=== PATIENT | female | born 1990 | race Caucasian/White ===

== ENCOUNTER 2020-10-08 17:55 | Emergency (ER) | payer BC, MEDICAID, OTHER ==
--- NOTE | 2020-10-08 18:34 | EDM.PDOC ---
ED HPI GENERAL MEDICAL PROBLEM - General Chief Complaint: General Stated Complaint: NECK SWELLING/PAIN Time Seen by Provider: 10/08/20 18:18 Source of Information: Reports: Patient History Limitations: Reports: No Limitations - History of Present Illness INITIAL COMMENTS - FREE TEXT/NARRATIVE: Patient reports right side of neck has looked swollen today. Some pain in right neck when turning head. 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 Does not recall any specific injury. Denies sore throat/fever/URI complaints or other signs of acute illness. - Related Data Allergies Allergy/AdvReac Type Severity Reaction Status Date / Time HPV vaccination Allergy Nausea and Uncoded 06/05/13 15:49 Vomiting pollen Allergy Edema Uncoded 06/05/13 15:49 Home Meds: Home Meds Cetirizine HCl [Zyrtec] 10 mg PO DAILY PRN 10/08/20 [History] Levothyroxine Sodium [Levothyroxine] 125 mcg PO DAILY 10/08/20 [History] Past Medical History Endocrine/Metabolic History: Reports: Hyperthyroidism Immunologic History: Reports: Other (See Below) (evironmental allergies) Social & Family History - Living Situation & Occupation Living situation: Reports: , with Family Occupation: Employed ED ROS GENERAL - Review of Systems Review Of Systems: See Below Constitutional: Reports: No Symptoms HEENT: Reports: Rhinitis (usual "allergic" runny nose), Throat Pain (irritated throat in AM that she attributes to smoke/allergies--no acute change), Other (right side neck swelling). Denies: Ear Discharge, Ear Pain, Eye Discharge, Nosebleed, Nose Pain, Sinus Problem, Throat Swelling, Vertigo, Vision Change Respiratory: Reports: No Symptoms Cardiovascular: Reports: No Symptoms Endocrine: Reports: No Symptoms GI/Abdominal: Reports: No Symptoms : Reports: No Symptoms Musculoskeletal: Reports: No Symptoms Skin: Reports: No Symptoms Neurological: Reports: No Symptoms Psychiatric: Reports: No Symptoms Hematologic/Lymphatic: Reports: Other (? swollen gland on right side of neck?) ED EXAM, GENERAL - Physical Exam Exam: See Below Exam Limited By: No Limitations General Appearance: Alert, WD/WN, No Apparent Distress Eye Exam: Bilateral Eye: EOMI, PERRL Ears: Normal External Exam, Normal Canal, Hearing Grossly Normal, Normal TMs Nose: Normal Inspection Throat/Mouth: Normal Inspection, Normal Lips, Normal Oropharynx, Normal Voice, No Airway Compromise Head: Atraumatic, Normocephalic Neck: Supple, Full Range of Motion, Tender Lateral (very tight along entire length SCM muscle on right/tender with pressure over muscle.), Other (Able to palpate one lymph node over medial portion right SCM/no sigificant enlargement noted. ) Respiratory/Chest: No Respiratory Distress, Lungs Clear, Normal Breath Sounds, No Accessory Muscle Use Cardiovascular: Regular Rate, Rhythm, No Murmur GI/Abdominal: Soft Extremities: Normal Capillary Refill Neurological: Alert, Oriented, Normal Cognition, Normal Gait, No Motor/Sensory Deficits Psychiatric: Normal Affect, Normal Mood Skin Exam: Warm, Dry, Intact, Normal Color Course - Vital Signs Last Recorded V/S: Last Vital Signs Temp 36.5 C 10/08/20 17:58 Pulse 99 10/08/20 17:58 Resp 16 10/08/20 17:58 BP 127/73 10/08/20 17:58 Pulse Ox 98 10/08/20 17:58 - Orders/Labs/Meds Orders: Active Orders 24 hr Category Date Time Status CULTURE STREP A CONFIRMATION [] Stat Lab 10/08/20 18:15 Results STREP SCRN A RAPID W CULT CONF [] Stat Lab 10/08/20 18:15 Results Labs: Laboratory Tests 10/08/20 10/08/20 Range/Units 18:15 18:15 WBC 13.4 H (4.0-10.2) K/uL RBC 4.64 (3.77-5.09) M/uL Hgb 13.9 (11.7-15.5) g/dL Hct 41.8 (34.0-46.0) % MCV 90.1 (84.0-98.0) fL MCH 30.0 (28.2-33.3) pg MCHC 33.3 (31.7-36.0) g/dL RDW 13.2 (11.2-14.1) % Plt Count 285 (150-350) K/uL Neut % (Auto) 73.6 (45.0-80.0) % Lymph % (Auto) 18.0 (10.0-50.0) % P[place] % (Auto) 7.0 (2.0-14.0) % Eos % (Auto) 1.3 (0.0-5.0) % Baso % (Auto) 0.1 (0.0-2.0) % Neut # (Auto) 9.83 H (1.40-7.00) K/uL Lymph # (Auto) 2.41 (0.50-3.50) K/uL P[place] # (Auto) 0.93 (0.00-1.00) K/uL Eos # (Auto) 0.17 (0.00-0.50) K/uL Baso # (Auto) 0.02 (0.00-0.20) K/uL Sodium 139 (136-145) mmol/L Potassium 3.8 (3.5-5.1) mmol/L Chloride 102 (98-107) mmol/L Carbon Dioxide 28.8 (21.0-32.0) mmol/L Anion Gap 8.2 (7-15) meq/L BUN 6 L (7-18) mg/dL Creatinine 0.75 (0.51-1.17) mg/dL Est Cr Clr Drug Dosing TNP Estimated GFR (MDRD) > 60 mL/min Glucose 96 (70-99) mg/dL Calcium 8.9 (8.5-10.1) mg/dL Total Bilirubin 0.5 (0.2-1.0) mg/dL AST 14 L (15-37) U/L ALT 36 (12-78) U/L Alkaline Phosphatase 78 (46-116) IU/L Total Protein 8.0 (6.4-8.2) g/dL Albumin 3.8 (3.4-5.0) g/dL Meds: Medications Discontinued Medications Generic Name Dose Route Start Last Admin Trade Name Freq PRN Reason Stop Dose Admin Cyclobenzaprine HCl 10 mg 10/08/20 18:30 Cyclobenzaprine 10 Mg Tab PO 10/08/20 18:31 ONETIME ONE - Re-Assessments/Exams Free Text/Narrative Re-Assessment/Exam: 10/08/20 18:47 WBC mildly elevated. Strep negative. Uncertain as to exact cause of complaint. Very likely could be due to right SCM inflammation/irritation. Entire muscle feels tight. Single lymph node palpated in area but no significant enlargement appreciated. Patient given work note for tonight. Single dose Flexeril (she did not want any additional meds prescribed). To go home/rest/apply ice over right neck. Observe for changes that may help more firmly identify cause of complaint, such as development of URI symptoms. Patient agreeable with plan. Departure - Departure Time of Disposition: 18:30 Disposition: Home, Self-Care 01 Condition: Good Clinical Impression: Neck pain on right side - Discharge Information *PRESCRIPTION DRUG MONITORING PROGRAM REVIEWED*: Not Applicable *COPY OF PRESCRIPTION DRUG MONITORING REPORT IN PATIENT WILLIAM: Not Applicable Instructions: Acute Torticollis, Adult Referrals: Rahul Kam PA [Primary Care Provider] - Forms: ED Department Discharge Additional Instructions: Watch for changes over the next 24 to 48 hours. As discussed, this could be due to an acutely tight/irritated muscles based on the distribution. However, see if you develop any symptoms of illness such as sore throat/cold symptoms that might irritate lymph nodes. Ice sore area. Follow up as needed if things change or right sided pain does not improve over the next day or two. Sepsis Event Note (ED) - Evaluation Sepsis Screening Result: No Definite Risk - Focused Exam Vital Signs: Vital Signs Temp Pulse Resp BP Pulse Ox 10/08/20 17:58 36.5 C 99 16 127/73 98 - My Orders Last 24 Hours: My Active Orders 10/08/20 18:15 CULTURE STREP A CONFIRMATION [RM] Stat STREP SCRN A RAPID W CULT CONF [RM] Stat - Assessment/Plan Last 24 Hours: My Active Orders 10/08/20 18:15 CULTURE STREP A CONFIRMATION [RM] Stat STREP SCRN A RAPID W CULT CONF [RM] Stat
[2020-10-08 18:36] LABS: ANION GAP 8.2 meq/L (7-15); CHLORIDE,CL 102 mmol/L (98-107); SODIUM,NA 139 mmol/L (136-145)
[2020-10-08] MEDS: Cyclobenzaprine 10 MG Tab PO ONE (18:44)
== END 2020-10-08 18:45 | disposition home or self-care (01) ==
LOC: LL.ED 17:55
DX: M54.2 Cervicalgia (principal); D72.829 Elevated white blood cell count, unspecified; E05.90 Thyrotoxicosis, unspecified without thyrotoxic crisis or storm; Z79.899 Other long term (current) drug therapy; Z88.7 Allergy status to serum and vaccine; Z91.048 Other nonmedicinal substance allergy status
CPT/HCPCS: 36415; 80053; 85025; 87081; 87430; 99283; A9270-GY